=== PATIENT | male | born 1960 | race Caucasian/White ===

== ENCOUNTER → 2017-03-12 | Outpatient (CLI) | payer OTHER | LOC: ZCOL.LAB 09:17 | DX: Z01.89 Encounter for other specified special examinations (principal) | CPT/HCPCS: G0103 ==

== ENCOUNTER → 2019-01-13 | Outpatient (REF) | LOC: ZLAB.WCH 16:22 | DX: Z01.89 Encounter for other specified special examinations (principal) ==